=== PATIENT | male | born 1975 | race Caucasian/White ===

== ENCOUNTER 2023-03-14 07:08 | Emergency (ER) | payer OTHER ==
[~2023-03-14] VITALS: Ht 188 cm; Wt 86.4 kg
[2023-03-14] MEDS ORDERED: ILOTYCIN5 MG/GM OP (07:54)
[2023-03-14 08:03] VITALS: BP 150/89; PULSE 84; TEMP 97.4
== END 2023-03-14 08:04 | disposition home or self-care (01) ==
LOC: COL.ER 07:08
DX: S05.02XA Injury of conjunctiva and corneal abrasion without foreign body, left eye, initial encounter (principal); F17.200 Nicotine dependence, unspecified, uncomplicated; Z28.310 Unvaccinated for COVID-19; X58.XXXA Exposure to other specified factors, initial encounter